=== PATIENT | female | born 1990 ===

== ENCOUNTER 2019-04-01 09:16 | Emergency (ER) | payer SELFPAY ==
[~2019-04-01] VITALS: Ht 162.6 cm; Wt 83.5 kg
[2019-04-01 09:28] VITALS: BP 136/82
== END 2019-04-01 10:55 | disposition home or self-care (01) ==
LOC: ER 09:17
DX: S02.5XXA Fracture of tooth (traumatic), initial encounter for closed fracture (principal); X58.XXXA Exposure to other specified factors, initial encounter; Y93.89 Activity, other specified; Y92.89 Other specified places as the place of occurrence of the external cause; Y99.8 Other external cause status
CPT/HCPCS: 99281